=== PATIENT | male | born 1995 | race African-American/Black ===

== ENCOUNTER 2017-02-21 12:06 | Emergency (ER) | payer OTHER ==
[2017-02-21 12:24] VITALS: BP 113/80; PULSE 84; RESP 18; TEMP 98.6; O2SAT 98
== END 2017-02-21 12:48 | disposition home or self-care (01) | DRG 605 ==
LOC: ED 12:06
DX: S61.210A Laceration without foreign body of right index finger without damage to nail, initial encounter (principal); W27.4XXA Contact with kitchen utensil, initial encounter
CPT/HCPCS: 99282

== ENCOUNTER 2017-06-30 18:02 | Emergency (ER) | payer SELFPAY ==
[2017-06-30 19:35] VITALS: BP 161/97; PULSE 86; RESP 18; TEMP 98.6; O2SAT 97
== END 2017-06-30 19:32 | disposition home or self-care (01) | DRG 125 ==
LOC: ED 18:02
DX: S00.11XA Contusion of right eyelid and periocular area, initial encounter (principal); Y04.0XXA Assault by unarmed brawl or fight, initial encounter
CPT/HCPCS: 70450; 70486; 99282

== ENCOUNTER 2017-07-06 00:10 | Emergency (ER) | payer SELFPAY ==
[2017-07-06 00:16] VITALS: O2SAT 97
[2017-07-06 00:21] VITALS: BP 138/93; PULSE 72; RESP 20; TEMP 98.4
[2017-07-06] MEDS ORDERED: BSS/BALANCED SALT SOL ONE (00:22)
[2017-07-06] MEDS ORDERED: PROPARACAINE HCL 0.5% OPHTHALMIC SOL ONE (00:23)
[2017-07-06] MEDS ORDERED: PROPARACAINE HCL 0.5% OPHTHALMIC SOL OP ONE (00:30)
[2017-07-06 01:14] LABS: CALCIUM 8.5 mg/dl (8.5-10.1); POTASSIUM 3.8 mMol/L (3.5-5.1)
[2017-07-06 01:21] LABS: BASOPHILS % (AUTO) 2 % (0-3); EOSINOPHILS % (AUTO) 1 % (0-9); HEMATOCRIT 40 % (39-53); MONOCYTES % (AUTO) 6.3 % (0-12); NEUTROPHILS % (AUTO) 43.7 % (37-80)
[2017-07-06 01:23] LABS: MEAN CORPUSCULAR VOLUME 78 fL (80-100)
[2017-07-06] MEDS ORDERED: ERYTHROMYCIN OPTHAL 1 GM TUBE OP ONE (02:22)
[2017-07-06] MEDS ORDERED: ERYTHROMYCIN OPTHAL 1 GM TUBE ONE (02:22)
== END 2017-07-06 02:34 | disposition home or self-care (01) | DRG 125 ==
LOC: ED 00:10
DX: H11.31 Conjunctival hemorrhage, right eye (principal); Y00.XXXA Assault by blunt object, initial encounter
CPT/HCPCS: 70488; 80048; 85025; 85610; 85730; 99283; Q9967